=== PATIENT | female | born 1975 | race Caucasian/White ===

== ENCOUNTER 2021-08-10 18:45 | Emergency (ER) | payer OTHER, SELFPAY ==
[2021-08-10 18:55] VITALS: BP 116/69; PULSE 73; RESP 16; TEMP 37.1; O2SAT 100
--- NOTE | 2021-08-10 19:15 | ED.FEMALEGU ---
HPI - Female Genitourinary General Chief complaint: Urogenital-Female Stated complaint: Urinary Problem Time Seen by Provider: 08/10/21 19:05 Source: patient and RN notes reviewed Mode of arrival: ambulatory Limitations: no limitations History of Present Illness HPI Narrative: Patient presents today complaining of lower back cramping, hematuria, urgency, lower abdominal pressure x2 days. Denies dysuria, fever. No recent antibiotic use. She has tried no [id number] treatment for her symptoms prior to arrival. MD elicited complaint: UTI Related Data Home Medications Medication Instructions Recorded Confirmed tramadol 50 mg tablet 50 mg PO Q6H PRN 05/22/20 08/10/21 cetirizine 10 mg PO DAILY 08/10/21 08/10/21 cyclobenzaprine 10 mg PO TID PRN 08/10/21 08/10/21 meloxicam 15 mg PO DAILY 08/10/21 08/10/21 zolpidem 10 mg PO HS 08/10/21 08/10/21 Allergies Allergy/AdvReac Type Severity Reaction Status Date / Time No Known Allergies Allergy Verified 08/10/21 19:05 Review of Systems Review of Systems: CONSTITUTIONAL: Denies body aches, fever, chills, or sweats. EYES: Denies visual changes, redness, or discharge. ENT: Denies rhinorrhea, congestion, sore throat, or otalgia. CARDIOVASCULAR: Denies chest pain, palpitations, or edema. RESPIRATORY: Denies cough or dyspnea. GASTROINTESTINAL: Denies nausea, vomiting, or diarrhea.+ Lower abdominal cramping GENITOURINARY: Denies dysuria. + Hematuria, urgency SKIN: Denies rash, itching, or wounds. MUSCULOSKELETAL: Denies joint pain, or myalgia. + Low back pain NEUROLOGIC: Denies headache, numbness, tingling, or weakness. PSYCH: Denies depression or anxiety. [facility] Surgical History Surgical History History of breast augmentation 2014 Social History Social History Smoking status: Never smoker Alcohol intake: never Substance use: never Comments At time of signature, I have reviewed and agree with nursing past medical, surgical, social and family history unless otherwise noted. Please see nursing chart for further information. There is no relevant family history pertinent to the presenting complaint Exam Narrative: GENERAL: Well-appearing, well-nourished, and in no acute distress. HEAD: Normocephalic, atraumatic. EYES: EOMI. No redness or drainage. Conjunctivae normal. ENT: Mucous membranes pink and moist. NECK: Normal AROM. CHEST: No respiratory distress. Clear to auscultation. HEART: Regular rate and rhythm. No murmur appreciated. Normal peripheral pulses. ABDOMEN: Soft, , nondistended, normal active bowel sounds.+ Mild suprapubic tenderness. -CVAT MUSCULOSKELETAL: No bony tenderness. EXTREMITIES: Normal range of motion. No edema. SKIN: Warm, dry, no rash. Capillary refill normal. Normal skin turgor. NEURO: No focal deficits. Alert and oriented x3. Gait steady. PSYCH: Normal affect. No signs of depression or anxiety. Course Vital Signs Vital signs: Vital Signs Temperature 98.8 F 08/10/21 18:55 Pulse Rate 73 08/10/21 18:55 Respiratory Rate 16 08/10/21 18:55 Blood Pressure 116/69 08/10/21 18:55 Pulse Oximetry 100 08/10/21 18:55 Temperature 98.8 F 08/10/21 18:55 Pulse Rate 73 08/10/21 18:55 Respiratory Rate 16 08/10/21 18:55 Blood Pressure 116/69 08/10/21 18:55 Pulse Oximetry 100 08/10/21 18:55 Reviewed MDM - Female Genitourinary Differential Diagnosis Differential diagnosis: Likely urinary tract infection, cystitis and other (Pyelonephritis, interstitial cystitis) Lab Data Attestation: I reviewed the patient's lab results. Labs: Urine Glucose Negative Reference Range: Negative Urine Glucose Negative Reference Range: Negative Urine Bilirubin Ne
== END 2021-08-10 19:20 | disposition home or self-care (01) ==
PROVIDERS: Emergency Provider Nurse Practitioner; PCP Internal Medicine
DX: N30.01 Acute cystitis with hematuria (principal)
CPT/HCPCS: 81003; 87077; 87086; 87088; 87186; 99213; G0463